=== PATIENT | male | born 1955 | race Caucasian/White ===

== ENCOUNTER → 2016-08-07 | Outpatient (CLI) | payer BC ==
[~2016-08-07] MED LIST: CATHETER FLUSH 10 ML SYR IV PRN; TEST75GE3 TD
--- NOTE | 2016-08-07 10:18 | STRESS TEST ---
PROCEDURE PHYSICIAN: MIREILLE FULLER DATE OF PROCEDURE: 08/07/2016 EXERCISE STRESS ECHOCARDIOGRAM REPORT REFERRING PHYSICIAN: Dr. Geraldine Alejandre. INDICATION: 1. Chest pain. 2. Hypertension. 3. Hyperlipidemia. BASELINE HEART RATE: 51. BASELINE BLOOD PRESSURE: 144/76. BASELINE EKG: Sinus rhythm with no ischemic changes. SUMMARY: The patient started exercising with a baseline heart rate, blood pressure, EKG mentioned above. He was able to exercise for total of 9 minutes on standard Andrés protocol, achieving maximum heart rate of 140, which is 87% of maximum expected heart rate. With peak exercise level, blood pressure was 188/93. EKG was showing no ischemic changes. During recovery, heart rate and blood pressure returned to baseline. EKG returned to baseline. Echocardiographic images were acquired and reviewed in the parasternal long axis parasternal short axis, apical 4 chamber and apical 2 chamber views. Review of the images showed normal left ventricular size with normal contractility with no ischemic changes. CONCLUSION: 1. Excellent exercise tolerance a total of 9 minutes/10.1 METs on standard Andrés protocol, achieving 87% of maximum expected heart rate. 2. Appropriate heart rate and blood pressure response to exercise. Returned to baseline during recovery. 3. No ischemia or arrhythmia on EKG. 4. Normal echocardiographic images at rest and with peak stress level with no ischemic changes. Job ID: [id number] Dictated Date: 08/07/2016 09:48:13 Pocket Maker Date: 08/07/2016 10:14:35 / butch
== END ==
LOC: CARD 07:52
PROVIDERS: ATTEND Internal Medicine Cardiovascular Disease
DX: E78.5 Hyperlipidemia, unspecified (principal); E78.1 Pure hyperglyceridemia; E66.1 Drug-induced obesity; Z83.3 Family history of diabetes mellitus; Z82.49 Family history of ischemic heart disease and other diseases of the circulatory system
CPT/HCPCS: 93351

== ENCOUNTER 2022-03-03 04:16 | Emergency (ER) | payer MEDICARE, OTHER ==
[~2022-03-03] VITALS: Ht 165 cm; Wt 82.0 kg
[~2022-03-03 04:16] MED LIST changes: -CATHETER FLUSH 10 ML SYR IV PRN
[2022-03-03] MEDS ORDERED: SIMV20TA26 (04:28)
[2022-03-03] MEDS ORDERED: GABA-486 (04:28)
[2022-03-03] MEDS ORDERED: METF-397 (04:28)
[2022-03-03] MEDS ORDERED: INSU100I10 (04:28)
[2022-03-03] MEDS ORDERED: ACETAMINOPHEN 500 MG TAB (TYLENOL) PO ONE (04:45)
[2022-03-03] MEDS ORDERED: ONDANSETRON 4 MG (ZOFRAN) ORAL DISSOLVE TAB SL ONE (04:45)
[2022-03-03] MEDS ORDERED: IBUPROFEN TABLET 200 MG TAB PO ONE ×2 (04:45→04:59)
[2022-03-03] MEDS ORDERED: RX-NIRMATRELVIR/RITONAVIR (PAXLOVID) #30 TABS PO STA (05:17)
--- NOTE | 2022-03-03 05:24 | ED General ---
General Chief Complaint: COVID19 Suspect/Confirmed Stated Complaint: JACOBO,SOB,BACKPAIN Nursing Triage Note: increased soa, cough, sore throat since 0000. pt reports covid + Source of Information: Patient Exam Limitations: No Limitations History of Present Illness Date Seen by Provider: Mar 03, 2022 Time Seen by Provider: 04:24 Initial Comments This 66-year-old gentleman presents with a terrible headache, myalgia, backache, sore throat, and cough that started yesterday afternoon. Symptoms are worse when lying flat. He has not been taking any medications to treat his symptoms. His recently tested positive for COVID-19. He received a single dose of vaccination many months ago. He has comorbidity of diabetes. He is febrile on presentation. Oxygen saturation is stable. He is not in distress. He is a li ttle nauseous. Allergies and Home Medications Allergies Coded Allergies: No Known Drug Allergies (Unverified , 03/24/12) Patient Home Medication List Home Medication List Reviewed: Yes Gabapentin (Gabapentin) 100 Mg Capsule, (Reported) Entered as Reported by: LAINEY BURR on 03/03/22427 Last Action: New Order Insulin Glargine,Hum.rec.anlog (Lantus Solostar) 100 Unit/Ml (3 Ml) Insuln.pen, (Reported) Entered as Reported by: LAINEY BURR on 03/03/22427 Last Action: New Order Metformin HCl (Metformin HCl) 500 Mg Tablet, (Reported) Entered as Reported by: LAINEY BURR on 03/03/22427 Last Action: New Order Simvastatin (Simvastatin) 20 Mg Tablet, (Reported) Entered as Reported by: LAINEY BURR on 03/03/22427 Last Action: New Order Testosterone (Androgel) 75 Gm Gel..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, 75 GM TD, (Reported) Entered as Reported by: HALEY STRAUSS on 03/24/121939 Review of Systems Review of Systems Constitutional: see HPI EENTM: see HPI Respiratory: see HPI Cardiovascular: no symptoms reported Gastrointestinal: see HPI Genitourinary: no symptoms reported Musculoskeletal: see HPI Skin: no symptoms reported Psychiatric/Neurological: See HPI Hematologic/Lymphatic: No Symptoms Reported Immunological/Allergic: no symptoms reported Past Ctlhxlo-Qcaeik-Bbezkx Hx Patient Social History Tobacco Use?: No Substance use?: No Alcohol Use?: Yes Alcohol type: Beer Alcohol Frequency: Daily Pt feels they are or have been: No Immunizations Up To Date First/Initial COVID19 Vaccinat: x1 Past Medical History Surgery/Hospitalization HX: iddm, high cholesterol, neuropathy Surgeries: No Cardiac: Yes High Cholesterol Neurological: Yes Neuropathy Genitourinary: No Gastrointestinal: No Musculoskeletal: No Endocrine: Yes Diabetes, Insulin dep HEENT: No Cancer: No Psychosocial: No Integumentary: No Physical Exam Vital Signs Vital Signs - First Documented 03/03/22 04:23 Temp 37.9 Pulse 87 Resp 16 B/P (MAP) 137/114 (122) Pulse Ox 95 O2 Delivery Room Air Capillary Refill : Less Than 3 Seconds Height, Weight, BMI Height: '" Weight: lbs. oz. 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 Norm as Tested, Other (Slightly anxious) Skin: Normal Color, Warm/Dry Progress/Results/Core Measures Suspected Sepsis SIRS Temperature: Pulse: 87 Respiratory Rate: 16 Blood Pressure 137 /114 Mean: 122 Results/Orders Lab Results Laboratory Tests Test 03/03/22 04:42 Range/Units Influenza Type A (RT-PCR) Not Detected Not Detecte Influenza Type B (RT-PCR) Not Detected Not Detecte SARS-CoV-2 RNA (RT-PCR) Detected H Not Detecte My Orders Orders - FRANK SEGOVIA MD Covid 19 Inhouse Test (03/03/22 04:24) Influenza A And B By Pcr (03/03/22 04:24) Acetaminophen Tablet (Tylenol Tablet) (03/03/22 04:45) Ibuprofen Tablet (Motrin Tablet) (03/03/22 04:45) Ondansetron Oral Dissolve Tab (Zofran (03/03/22 04:45) Ibuprofen Tablet (Motrin Tablet) (03/03/22 04:59) Rx-Nirmatrelvir/Ritonavir(Eua) (Rx-Paxlo (03/03/22 05:17) Medications Given in ED Vital Signs/I&O 03/03/22 03/03/22 04:23 05:28 Temp 37.9 37.5 Pulse 87 84 Resp 16 16 B/P (MAP) 137/114 (122) 135/104 Pulse Ox 95 96 O2 Delivery Room Air Room Air Capillary Refill : Less Than 3 Seconds Blood Pressure Mean: 122 Progress Note : Progress Note Symptoms were treated with Zofran, Tylenol, and ibuprofen. He did test positive for COVID-19. We discussed EUA certification for Paxlovid. Risks and benefits discussed. He elected to proceed with Paxlovid treatment. He was advised to s top his statin therapy while on Paxlovid. Departure Impression Primary Impression: COVID-19 Disposition: 01 HOME, SELF-CARE Condition: Improved Departure-Patient Inst. Decision time for Depature: 05:20 Referrals: AILYN SHI MD (PCP/Family) Primary Care Physician Patient Instructions: COVID-19 Overview, Nirmatrelvir and Ritonavir FDA Fact Sheet Add. Discharge Instructions: Drink plenty of clear liquids to stay well-hydrated and try to eat a well- balanced diet. Take a multivitamin daily. Complete the entire 10 doses of Paxlovid. Remain in quarantine for at least 5 full days. If feeling improved after 5 days, you may come out of quarantine, but mask an additional 5 days. Stay active by moving about the house or walking outside. When sitting or lying, change positions often. Activity and position changes will improve your breathing and reduce risk of complications from COVID. Check your oxygen saturations with a pulse oximeter a couple of times a day and if you are feeling more short of breath. If you have multiple oxygen saturations less than 92% or any oxygen saturations less than 90%, return to care for reevaluation. You may take Tylenol (acetaminophen) up to 1000 mg every 6 hours and/or ibuprofen up to 600 mg every 6 hours as needed for pain or fever. Return to care if you are worsening despite following these instructions. All discharge instructions reviewed with patient and/or family. Voiced understanding. Copy Copies To 1: AILYN SHI MD, JOSHUA T MD Mar 03, 2022 05:24
[2022-03-03 05:28] VITALS: BP 135/104
== END 2022-03-03 05:28 | disposition home or self-care (01) ==
LOC: EDUNIT# 04:16 → ER 04:20
DX: U07.1 COVID-19 (principal); E11.9 Type 2 diabetes mellitus without complications; Z28.311 Partially vaccinated for COVID-19; Z79.4 Long term (current) use of insulin
CPT/HCPCS: 87636; 99283